=== PATIENT | female | born 1995 | race Caucasian/White ===

== ENCOUNTER 2016-08-06 23:22 | Emergency (ER) | payer OTHER ==
[2016-08-06 23:38] VITALS: O2SAT 98
[2016-08-06] MEDS ORDERED: Sodium Chloride 0.9% 1000 ML 1,000 ML IV SCH (23:45)
[2016-08-06] MEDS ORDERED: Zofran 4 MG/2 ML VIAL IV ONE (23:54)
--- NOTE | 2016-08-07 00:01 | ERPHSYRPT ---
- History of Present Illness Time Seen by Provider: 08/06/16 23:47 Source: patient Exam Limitations: no limitations Patient Subjective Stated Complaint: states that she had chronic migraine pain on the left head and face as well as her neck for months - believes that this may be related to infected tooth on the left side of the jaw - last night getting worse, especially in the neck - and since 1100 headache getting worse - reports multiple episodes of vomiting today - is also c/o left side pain - reports also buring on the incisions of her breast augmentations that were completed on 06/17/2016 Triage Nursing Assessment: ambulatory to treatment area - steady gait - moves all extremities with equal strength. alert/oriented - pleasant affect. skin pwd - no rash/injury. resps easy non-labored Physician History: FOR THE PAST 1.5 MONTHS PT HAS HAD DAILY HEADACHES MOSTLY ON THE LEFT SIDE TODAY WITH VOMITING X4, DIARRHEA X1 WITHOUT BLOOD AND DIAPHORESIS. PT ALSO C/O RLQ ABDOMINAL PAIN. PT STATES SHE HAS NEVER HAD A CT OR MRI OF HER HEAD. PT ALSO C/O DISCOMFORT IN THE INCISIONS FROM HER BREAST AUGMENTATION DONE LAST MONTH. Allergies/Adverse Reactions: No Known Drug Allergies Allergy (Unverified 08/06/16 23:29) Hx Tetanus, Diphtheria Vaccination/Date Given: Yes Hx Influenza Vaccination/Date Given: No Hx Pneumococcal Vaccination/Date Given: No Immunizations Up to Date: Yes - Review of Systems Abdominal/Gastrointestinal: Abdominal Pain (RLQ), Vomiting, Diarrhea Neurological: Headache Endocrine: Excessive Sweating All Other Systems: Reviewed and Negative - Past Medical History Pertinent Past Medical History: Yes Neurological History: Migraines - Past Surgical History Past Surgical History: Yes Other Surgical History: dental extractions - breast augmentations - Social History Smoking Status: Never smoker Exposure to second hand smoke: No Drug Use: none Patient Lives Alone: No - Female History Hx Last Menstrual Period: 06/22/2015 - Nursing Vital Signs Nursing Vital Signs: Initial Vital Signs Temperature 98.4 F Temperature Source Oral Pulse Rate 94 Respiratory Rate 18 Blood Pressure [] 117/57 Blood Pressure [] 122/66 Pain Intensity 6 - Physical Exam General Appearance: alert Eye Exam: PERRL/EOMI, eyes nml inspection Ears, Nose, Throat Exam: TMs normal, pharynx normal, moist mucous membranes Neck Exam: normal inspection Respiratory Exam: lungs clear Cardiovascular Exam: normal heart sounds Gastrointestinal/Abdomen Exam: soft, normal bowel sounds, tenderness (MILD RLQ ABDOMINAL TENDERNESS) Back Exam: normal range of motion Extremity Exam: normal inspection, No pedal edema Neurologic Exam: alert, cooperative, normal mood/affect Skin Exam: warm, dry, other (INCISIONS UNDER BOTH BREASTS HEALING WELL(ER NURSE PRESENT DURING EXAM).) SpO2 Interpretation: normal SpO2: 98 Oxygen Delivery: Room Air - Course Nursing assessment & vital signs reviewed: Yes - CT Exams Head CT Interpretation: Tele-radiologist Report (NO CT EVIDENCE OF ACUTE INTRACRANIAL ABNORMALITY.) Abdomen/Pelvis CT Interpretation: Tele-radiologist Report (NO ACUTE FINDINGS) Ordered Tests: Active Orders 24 hr Category Date Time Status IV Insertion STAT Care 08/06/16 23:54 Active ABDOMEN AND PELVIS W/0 CONTRAS [CT] Stat Exams 08/07/16 00:50 Taken HEAD WITHOUT CONTRAST [CT] Stat Exams 08/06/16 23:52 Taken AMYLASE Stat Lab 08/06/16 23:54 Completed CBC W DIFF Stat Lab 08/06/16 23:54 Completed CMP Stat Lab 08/06/16 23:54 Completed CULTURE,URINE Stat Lab 08/07/16 00:10 Received HCG QUALITATIVE,SERUM Stat Lab 08/06/16 23:54 Completed LIPASE Stat Lab 08/06/16 23:54 Completed MAGNESIUM Stat Lab 08/07/16 00:10 Completed UA W/ MICROSCOPIC Stat Lab 08/07/16 00:10 Completed Medication Summary Generic Name Dose Route Start Last Admin Trade Name Freq PRN Reason Stop Dose Admin Sodium Chloride 1,000 mls @ 100 mls/hr 08/06/16 23:45 08/07/16 00:14 Sodium Chloride 0.9% 1000 Ml IV 09/05/16 23:44 100 mls/hr .Q10H BETTY Administration Discontinued Medications Generic Name Dose Route Start Last Admin Trade Name Freq PRN Reason Stop Dose Admin Ondansetron HCl 4 mg 08/06/16 23:54 08/07/16 00:14 Zofran 4 Mg/2 Ml Vial IV 08/06/16 23:55 4 mg STAT ONE Administration Ondansetron HCl Confirm 08/07/16 00:12 Zofran 4 Mg/2 Ml Vial Administered 08/07/16 00:13 Dose 4 mg .ROUTE .[facility] [employer] [employer] ONE Lab/Rad Data: Laboratory Result Diagrams 08/07/16 00:10 08/07/16 00:10 Laboratory Results 08/07/16 08/07/16 08/07/16 Range/Units 00:10 00:10 00:10 WBC 13.3 H (4.0-10.5) K/mm3 RBC 4.61 (4.1-5.4) M/mm3 Hgb 14.1 (12.0-16.0) gm/dl Hct 42.1 (35-47) % MCV 91.3 (78-100) fl MCH 30.6 (26-32) pg MCHC 33.5 (32-36) g/dl RDW 13.3 (11.5-14.0) % Plt Count 333 (150-450) K/mm3 MPV 9.9 H (6-9.5) fl Gran % 88.4 H (36.0-66.0) % Lymphocytes % 6.4 L (24.0-44.0) % Monocytes % 4.7 (0.0-12.0) % Eosinophils % 0.5 (0.00-5.0) % Basophils % 0.0 (0.0-0.4) % Basophils # 0 (0-0.4) Sodium 141 (136-145) mEq/L Potassium 3.7 (3.5-5.1) mEq/L Chloride 102 (98-107) mEq/L Carbon Dioxide 27.0 (21-32) mEq/L Anion Gap 15.2 H (5-15) MEQ/L BUN 18 (9-20) mg/dL Creatinine 0.81 (0.55-1.30) mg/dl Estimated GFR > 60 ML/MIN Glucose 116 H (70-110) MG/DL Calcium 9.0 (8.5-10.1) mg/dL Magnesium 1.9 (1.8-2.4) mg/dL Total Bilirubin 0.70 (0.2-1.0) mg/dL AST 16 (15-37) U/L ALT 20 (12-78) U/L Alkaline Phosphatase 67 (46-116) U/L Serum Total Protein 8.0 (6.4-8.2) gm/dL Albumin 4.2 (3.4-5.0) g/dL Amylase 41 (25-115) U/L Lipase 103 (73-393) U/L Serum , Qual NEGATIVE (Negative) Ur Collection Type Urine Color (YELLOW) Urine Appearance (CLEAR) Urine pH (5-6) Ur Specific [place] (1.005-1.025) Urine Protein (Negative) Urine Ketones (NEGATIVE) Urine Blood (0-5) Damian/ul Urine Nitrite (NEGATIVE) Urine Bilirubin (NEGATIVE) Urine Urobilinogen (0-1) mg/dL Ur Leukocyte Esterase (NEGATIVE) Urine Microscopic RBC (0-2) /HPF Ur Epithelial Cells (FEW) /HPF Urine Bacteria (NEGATIVE) /HPF Urine Glucose (NEGATIVE) mg/dL Specimen Received 08/07/16 Range/Units 00:10 WBC (4.0-10.5) K/mm3 RBC (4.1-5.4) M/mm3 Hgb (12.0-16.0) gm/dl Hct (35-47) % MCV (78-100) fl MCH (26-32) pg MCHC (32-36) g/dl RDW (11.5-14.0) % Plt Count (150-450) K/mm3 MPV (6-9.5) fl Gran % (36.0-66.0) % Lymphocytes % (24.0-44.0) % Monocytes % (0.0-12.0) % Eosinophils % (0.00-5.0) % Basophils % (0.0-0.4) % Basophils # (0-0.4) Sodium (136-145) mEq/L Potassium (3.5-5.1) mEq/L Chloride (98-107) mEq/L Carbon Dioxide (21-32) mEq/L Anion Gap (5-15) MEQ/L BUN (9-20) mg/dL Creatinine (0.55-1.30) mg/dl Estimated GFR ML/MIN Glucose (70-110) MG/DL Calcium (8.5-10.1) mg/dL Magnesium (1.8-2.4) mg/dL Total Bilirubin (0.2-1.0) mg/dL AST (15-37) U/L ALT (12-78) U/L Alkaline Phosphatase (46-116) U/L Serum Total Protein (6.4-8.2) gm/dL Albumin (3.4-5.0) g/dL Amylase (25-115) U/L Lipase (73-393) U/L Serum , Qual (Negative) Ur Collection Type CLEAN CATCH Urine Color STRAW (YELLOW) Urine Appearance CLEAR (CLEAR) Urine pH 5.0 (5-6) Ur Specific [place] 1.020 (1.005-1.025) Urine Protein TRACE (Negative) Urine Ketones TRACE (NEGATIVE) Urine Blood SMALL (0-5) Damian/ul Urine Nitrite NEGATIVE (NEGATIVE) Urine Bilirubin NEGATIVE (NEGATIVE) Urine Urobilinogen NORMAL (0-1) mg/dL Ur Leukocyte Esterase NEGATIVE (NEGATIVE) Urine Microscopic RBC 0-2 (0-2) /HPF Ur Epithelial Cells FEW (FEW) /HPF Urine Bacteria RARE (NEGATIVE) /HPF Urine Glucose NEGATIVE (NEGATIVE) mg/dL Specimen Received 08/07/16:0005 - Departure Time of Disposition: 02:08 Departure Disposition: Home Clinical Impression: HEADACHE, ABDOMINAL PAIN, VOMITING Condition: Stable Critical Care Time: No Instructions: Headache, Abdominal Pain-Adult, Vomiting -- Adult Additional Instructions: FOLLOW UP WITH PRIVATE DOCTOR TOMORROW. Prescriptions: Promethazine HCl 25 mg [Phenergan 25 mg] 25 mg PO Q4H PRN PRN #14 tablet PRN Reason: Nausea/Vomiting
[2016-08-07] MEDS ORDERED: Sodium Chloride 0.9% 1000 ML 1,000 ML ONE (00:12)
[2016-08-07] MEDS ORDERED: Zofran 4 MG/2 ML VIAL ONE (00:12)
[2016-08-07 00:17] LABS: Eosinophil % 0.5 % (0.00-5.0); Granulocytes % 88.4 % (36.0-66.0); Lymphocytes % 6.4 % (24.0-44.0); Mean Cell Volume 91.3 fl (78-100); Mean Corpuscular Hemoglobin 30.6 pg (26-32); Mean Platelet Volume 9.9 fl (6-9.5); Monocytes % 4.7 % (0.0-12.0); Platelet Count 333 K/mm3 (150-450); Red Blood Count 4.61 M/mm3 (4.1-5.4); Red Cell Distribution Width 13.3 % (11.5-14.0); White Blood Count 13.3 K/mm3 (4.0-10.5)
[2016-08-07 00:20] LABS: ADD URINE CULTURE? YES (NO); Bacteria RARE /HPF (NEGATIVE); Bilirubin NEGATIVE (NEGATIVE); Blood SMALL Ery/ul (0-5); COMPLETE URINE MICROSCOPIC? YES; Collection Type CLEAN CATCH; Epithelial Cells FEW /HPF (FEW); Glucose NEGATIVE (NEGATIVE); Leukocyte Esterase NEGATIVE (NEGATIVE)
[2016-08-07 00:33] VITALS: BP 117/57; PULSE 94
[2016-08-07 00:36] LABS: ALBUMIN 4.2 g/dL (3.4-5.0); ALKALINE PHOSPHATASE 67 U/L (46-116); ANION GAP 15.2 MEQ/L (5-15); BLOOD UREA NITROGEN 18 mg/dL (9-20); CHLORIDE 102 mEq/L (98-107); Glucose 116 MG/DL (70-110); LIPASE 103 U/L (73-393); MAGNESIUM 1.9 mg/dL (1.8-2.4); Potassium 3.7 mEq/L (3.5-5.1); SGOT/AST 16 U/L (15-37); SGPT/ALT 20 U/L (12-78); SODIUM 141 mEq/L (136-145)
[2016-08-07] MEDS ORDERED: TORAdol 30 mg Injection IV ONE (02:08)
[2016-08-07] MEDS ORDERED: TORAdol 30 mg Injection ONE (02:13)
--- NOTE | 2016-08-07 07:35 | XRAY ---
Indication: Chronic headache. Emesis. Multiple contiguous axial images obtained through the head without contrast. Comparison: None Normal appearing brain parenchyma, ventricles, and bony calvarium. Tiny fluid leveling in the left maxillary sinus. Remaining visualized paranasal sinuses and mastoid air cells are clear. Impression: Normal CT head without contrast exam. Minimal paranasal sinus disease. Comment: Preliminary interpretation was made by [facility]. No critical discrepancy. CTDI 71.08
--- NOTE | 2016-08-07 07:38 | XRAY ---
Indication: Chronic headache and emesis. Multiple contiguous axial images obtained through the abdomen and pelvis without contrast as ordered. Comparison: None Lung bases essentially clear. Heart is not enlarged. Partially visualized bilateral breast implants. Noncontrasted stomach and bowel loops appear nonobstructed. Normal appendix. No free fluid/air. There is a uterine IUD in situ. Remaining liver, gallbladder, pancreas, spleen, adrenal glands, kidneys, ureters, bladder, and aorta appear unremarkable for noncontrast exam. Osseous structures intact. Impression: No acute intra-abdominal/pelvic abnormalities on this noncontrasted exam. Comment: Preliminary interpretation was made by [facility]. No discrepancy. CTDI 11.24
== END 2016-08-07 02:34 | disposition home or self-care (01) ==
LOC: ED 23:22
DX: R51 Headache (principal); R10.9 Unspecified abdominal pain; R11.10 Vomiting, unspecified; R10.31 Right lower quadrant pain; Z98.890 Other specified postprocedural states
CPT/HCPCS: 36000; 36415; 70450; 74176; 80053; 81000; 82150; 83690; 83735; 84703; 85025; 87086; 96360; 96361; 96374; 96375; 99282; 99284; J1885; J2405